=== PATIENT | female | born 1995 | race Caucasian/White ===

== ENCOUNTER 2025-01-28 12:37 | Inpatient (IN) | payer BC ==
[~2025-01-28] VITALS: Ht 167.6 cm; Wt 79.8 kg
[2025-01-28] MEDS ORDERED: KETOROLAC TROMETHAMINE INJ 30 MG/ML VIAL ONE (13:29)
[2025-01-28] MEDS: IV NS 0.9% 1,000 ML BAG IV ONE (13:29)
[2025-01-28] MEDS ORDERED: ONDANSETRON HCL/PF 4 MG/2 ML VIAL ONE (13:29)
[2025-01-28] MEDS: KETOROLAC TROMETHAMINE 15 MG/ML VIAL IV ONE (13:30)
[2025-01-28] MEDS: ONDANSETRON HCL/PF 4 MG/2 ML VIAL IVP ONE (13:31)
[2025-01-28 13:32] LABS: APPEARANCE,URINE CLEAR (CLEAR); BLOOD, URINE 1+ Ery/uL (NEGATIVE); LEUKOCYTE ESTERASE ,URINE TRACE (NEGATIVE); NITRITE, URINE NEGATIVE (NEGATIVE); UGLUCOSE NEGATIVE (NEGATIVE)
[2025-01-28 13:34] LABS: PREGNANCY TEST URINE QUAL NEGATIVE (NEGATIVE)
[2025-01-28 13:35] LABS: PLATELET COUNT (AUTO) 426 K/uL (150-450); RED BLOOD CELL COUNT(AUTO) 4.32 MIL/uL (4.0-5.2); RED CELL DISTRIBUTION WIDTH 13.3 % (11.5-15.0); WHITE BLOOD COUNT (AUTO) 13.0 K/uL (4.3-11.0)
[2025-01-28 13:36] LABS: ADD URINE CULTURE YES
[2025-01-28 14:56] LABS: SODIUM SERUM 137.0 mmol/L (136-145)
[2025-01-28 14:57] LABS: CALCIUM, SERUM 8.2 mg/dL (8.5-10.1)
[2025-01-28 14:58] LABS: CREATININE 1.0 mg/dL (0.6-1.3); UREA NITROGEN, BLOOD 9.0 mg/dL (7-18)
[2025-01-28 14:59] LABS: ASPARTATE AMINOTRANSFERASE 15.0 U/L (15-37); TOTAL PROTEIN, SERUM 7.1 g/dL (6.4-8.2)
[2025-01-28] MEDS ORDERED: NORG1TAB PO (15:31)
[2025-01-28] MEDS: PIPERACILLIN /TAZOBACTAM 3.375 G in IV D5W 50 ML IV SCH (15:45)
[2025-01-28 16:30] VITALS: BP 114/72; TEMP 98.1; O2SAT 95
[2025-01-28] MEDS ORDERED: ZOLPIDEM TARTRATE 5 MG TABLET PO PRN (17:30)
[2025-01-28] MEDS ORDERED: MAGNESIUM HYDROXIDE 30 ML UDC PO PRN (17:30)
[2025-01-28] MEDS ORDERED: ACETAMINOPHEN 325 MG TABLET PO PRN (17:30)
[2025-01-28] MEDS ORDERED: Z GUARD REMEDY 4 OZ OINT TP PRN (17:30)
[2025-01-28] MEDS ORDERED: MAG HYDROX/AL HYDROX/SIMETH 30 ML UDC PO PRN (17:30)
[2025-01-28 20:00] VITALS: BP 131/84; TEMP 98.4; O2SAT 97
[2025-01-28] MEDS: IV D5/0.45 NACL 1,000 ML IV PRN (20:09)
[2025-01-28] MEDS: HYDROCODONE/APAP 5/325MG TABLET PO PRN (20:23)
[2025-01-28] MEDS: ONDANSETRON HCL/PF 4 MG/2 ML VIAL IVP PRN (20:24)
[2025-01-28] MEDS: MORPHINE SULFATE INJ 2 MG/ML DISP.SYRIN IV PRN (22:31)
[2025-01-28] MEDS ORDERED: PIPERACI/TAZO 3.375GM/D5W 50ML PB IV ONE (23:07)
[2025-01-29] MEDS ORDERED: PIPERACI/TAZO 3.375GM/D5W 50ML PB IV ONE (05:18)
[2025-01-29 07:37] LABS: PLATELET COUNT (AUTO) 380 K/uL (150-450); RED BLOOD CELL COUNT(AUTO) 4.00 MIL/uL (4.0-5.2); RED CELL DISTRIBUTION WIDTH 12.8 % (11.5-15.0); WHITE BLOOD COUNT (AUTO) 10.5 K/uL (4.3-11.0)
[2025-01-29 08:00] VITALS: BP 127/80; TEMP 99.1; O2SAT 99
[2025-01-29 08:33] LABS: CALCIUM, SERUM 8.3 mg/dL (8.5-10.1); CREATININE 1.0 mg/dL (0.6-1.3); PHOSPHORUS 3.0 mg/dL (2.5-4.9); SODIUM SERUM 136.0 mmol/L (136-145); UREA NITROGEN, BLOOD 5.0 mg/dL (7-18)
[2025-01-29] MEDS: PANTOPRAZOLE 40 MG VIAL IV SCH (08:49)
[2025-01-29 13:37] LABS: APPEARANCE,URINE TURBID (CLEAR); BLOOD, URINE 3+ Ery/uL (NEGATIVE); LEUKOCYTE ESTERASE ,URINE TRACE (NEGATIVE); NITRITE, URINE NEGATIVE (NEGATIVE); UGLUCOSE NEGATIVE (NEGATIVE)
[2025-01-29 13:49] LABS: ADD URINE CULTURE NO; SQUAMOUS EPITHELIAL CELL,UR Few /HPF (None Seen)
[2025-01-29 16:00] VITALS: BP 114/72; TEMP 99.7; O2SAT 97
[2025-01-29 20:00] VITALS: BP 120/74; TEMP 97.9; O2SAT 99
[2025-01-30 04:00] VITALS: BP 120/74; TEMP 97.9; O2SAT 99
[2025-01-30 07:30] VITALS: BP 103/67; TEMP 98.4; O2SAT 98
[2025-01-30 08:00] VITALS: BP 103/67; TEMP 98.4; O2SAT 98
[2025-01-30 08:07] LABS: PLATELET COUNT (AUTO) 396 K/uL (150-450); RED BLOOD CELL COUNT(AUTO) 3.82 MIL/uL (4.0-5.2); RED CELL DISTRIBUTION WIDTH 13.0 % (11.5-15.0); WHITE BLOOD COUNT (AUTO) 7.8 K/uL (4.3-11.0)
[2025-01-30 08:13] LABS: INR 1.13 (0.91-1.10)
[2025-01-30 08:26] LABS: CALCIUM, SERUM 8.3 mg/dL (8.5-10.1); CREATININE 1.0 mg/dL (0.6-1.3); PHOSPHORUS 3.0 mg/dL (2.5-4.9); SODIUM SERUM 139.0 mmol/L (136-145); UREA NITROGEN, BLOOD 6.0 mg/dL (7-18)
[2025-01-30] MEDS: POTASSIUM CL. PREMIX PERIPHER. 50 ML IV SCH (09:47)
[2025-01-30 16:00] VITALS: BP 116/74; TEMP 98.1; O2SAT 99
[2025-01-30] MEDS ORDERED: HYDROMORPHONE 1 MG/1 ML DISP.SYRIN IV PRN (18:00)
[2025-01-30] MEDS ORDERED: FENTANYL PF 100MCG/2ML AMPUL ONE (19:14)
[2025-01-30] MEDS ORDERED: MIDAZOLAM HCL 2 MG/2ML VIAL ONE (19:15)
[2025-01-30] MEDS ORDERED: ROCURONIUM BROMIDE 50 MG/5 ML ONE (19:15)
[2025-01-30] MEDS ORDERED: BUPIVACAINE 0.5 % PF 150 MG/30 ML VIAL ONE (20:00)
[2025-01-30] MEDS ORDERED: ONDANSETRON HCL/PF 4 MG/2 ML VIAL ONE (23:20)
[2025-01-30 23:30] VITALS: BP 133/97; TEMP 97.5; TEMP 97.7; O2SAT 99
[2025-01-31] VITALS: BP 115/78; TEMP 97.7; O2SAT 100
[2025-01-31 00:57] VITALS: BP 117/68; TEMP 98.2; O2SAT 97
[2025-01-31 02:00] VITALS: BP 112/60; TEMP 98; O2SAT 98
[2025-01-31 07:29] LABS: PLATELET COUNT (AUTO) 441 K/uL (150-450); RED BLOOD CELL COUNT(AUTO) 3.57 MIL/uL (4.0-5.2); RED CELL DISTRIBUTION WIDTH 12.9 % (11.5-15.0); WHITE BLOOD COUNT (AUTO) 6.3 K/uL (4.3-11.0)
[2025-01-31 07:30] VITALS: BP 104/64; TEMP 97.9; O2SAT 97
[2025-01-31 08:04] LABS: ASPARTATE AMINOTRANSFERASE 39.0 U/L (15-37); CALCIUM, SERUM 8.1 mg/dL (8.5-10.1); CREATININE 0.9 mg/dL (0.6-1.3); PHOSPHORUS 4.0 mg/dL (2.5-4.9); SODIUM SERUM 139.0 mmol/L (136-145); TOTAL PROTEIN, SERUM 6.5 g/dL (6.4-8.2); UREA NITROGEN, BLOOD 6.0 mg/dL (7-18)
[2025-01-31 08:06] LABS: ASPARTATE AMINOTRANSFERASE 41.0 U/L (15-37); TOTAL PROTEIN, SERUM 6.4 g/dL (6.4-8.2)
[2025-02-01] MEDS ORDERED: PANTOPRAZOLE 40 MG/PACK PACK PO SCH (09:00)
== END 2025-02-01 | disposition home or self-care (01) | DRG 854 ==
LOC: ER 12:42 → MED 14:55
PROVIDERS: ADMIT Student in an Organized Health Care Education/Training Program; ATTEND Student in an Organized Health Care Education/Training Program
PROC: 0DNU4ZZ Release Omentum, Percutaneous Endoscopic Approach (ICD-10-PCS; 2025-01-30)
PROC: 0FT44ZZ Resection of Gallbladder, Percutaneous Endoscopic Approach (ICD-10-PCS; principal; 2025-01-30 19:40)
DX: A41.9 Sepsis, unspecified organism (principal); E44.1 Mild protein-calorie malnutrition; N39.0 Urinary tract infection, site not specified; K82.1 Hydrops of gallbladder; K80.01 Calculus of gallbladder with acute cholecystitis with obstruction; K66.0 Peritoneal adhesions (postprocedural) (postinfection); K82.8 Other specified diseases of gallbladder; Z88.3 Allergy status to other anti-infective agents; Z88.2 Allergy status to sulfonamides; Z79.899 Other long term (current) drug therapy; B96.89 Other specified bacterial agents as the cause of diseases classified elsewhere
CPT/HCPCS: 36415; 76705-TC; 78226; 80048-TC; 80053-TC; 80076-TC; 81001; 83690-TC; 83735-TC; 84100-TC; 84703-TC; 85025-TC; 85610-TC; 85730-TC; 86850-TC; 87086-TC; 88304-TC; A4223; A9537; C1727; G0378; J0330; J0690; J1100; J1885; J2250; J2270; J2405; J2470; J2543; J2704; J3010; J3480; J3490; J7030; J7050; J7060